=== PATIENT | male | born 1945 | race Caucasian/White ===

== ENCOUNTER 2021-11-09 18:41 | Emergency (ER) | payer OTHER, SELFPAY ==
[2021-11-09] VITALS (10 sets, daily range): BP systolic 176–236; BP diastolic 86–115; PULSE 76–88; RESP 9–24; TEMP 36.6; O2SAT 93–97
--- NOTE | 2021-11-09 19:14 | DI.CT.S_ITS ---
PROCEDURE: CT HEAD/BRAIN WO CON INDICATIONS: syncope with R orthodox laceration TECHNIQUE: Noncontrast 4.5 mm thick angled axial sections acquired from the foramen magnum to the vertex, with coronal and sagittal reformats. For radiation dose reduction, the following was used: automated exposure control, adjustment of mA and/or kV according to patient size. COMPARISON: None. FINDINGS: Image quality: Excellent. CSF spaces: Basal cisterns are patent. No extra-axial fluid collections. The ventricles are symmetric in size and shape. Brain: No intracranial bleeds or masses. There is cerebral volume loss for age, with resultant ventricular and sulcal prominence. There are periventricular and deep white matter chronic small vessel ischemic changes. There is intracranial internal carotid artery atherosclerosis. Skull and face: Calvarium and visualized facial bones appear intact, without suspicious lesions. Right frontal temporal subgaleal hematoma. Sinuses: Visualized sinuses and mastoids are clear. IMPRESSION: Right frontal temporal subgaleal hematoma. Negative for acute stroke, hemorrhage, or mass. No evidence of significant intracranial sequelae of acute trauma. Dictated by: Cornelio Rios M.D. on 11/09/2021 at 19:36 Approved by: Cornelio Rios M.D. on 11/09/2021 at 19:37
--- NOTE | 2021-11-09 19:14 | ED.GENADULT ---
HPI - General Adult General Chief complaint: Trauma Stated complaint: Blacked Out, Head Laceration Time Seen by Provider: 11/09/21 18:50 Source: patient Mode of arrival: Ambulatory Limitations: no limitations History of Present Illness HPI narrative: Patient is a 76-year-old male here for evaluation of a head injury and passing out. Patient states that he is unsure exactly what happened. The last thing that he remembers his walking up to the front entrance of the hospital in order to come to the emergency department to see a friend who was a patient. He states that the next thing that he remembers he is driving away from the hospital. Realizing that he was going the wrong direction and needed to turn around. He then noticed he was bleeding from his right forehead. He drove back to the hospital. He asked nursing staff at triage whether not he should be checked in. He thinks that he fell and hit his head but he is not 100% sure. At the time of my evaluation he does have a headache and a cut to his right forehead but otherwise he reports no other symptoms. Review of Systems Constitutional Constitutional: Denies fatigue, Denies fever(s), Denies frequent falls and Reports headache(s) Eyes Eyes: Denies change in vision ENT Ears, Nose, Mouth, and Throat: Reports headache(s) and Denies neck pain Cardiovascular Cardiovascular: Denies chest pain at rest, Reports syncope, Denies rapid heart rate and Denies dyspnea Respiratory Respiratory: Denies cough and Denies dyspnea Gastrointestinal Gastrointestinal: Denies abdominal pain Musculoskeletal Musculoskeletal: Denies back pain, Denies arthralgias and Denies neck pain Integumentary/Breasts Skin/Breast: Reports system reviewed and no additional complaints, except as documented and Reports as per HPI Neurologic Neurologic: Reports syncope, Denies frequent falls and Reports headache(s) Endocrine Endocrine: Denies fatigue Hematologic/Lymphatic On Anticoagulants: No Allergic/Immunologic Allergic/Immunologic: Reports system reviewed and no additional complaints, except as documented Patient History Social History lives independently: Yes Exam Initial Vital Signs Initial Vital Signs: Vital Signs Temperature 97.8 F 11/09/21 18:51 Pulse Rate 88 11/09/21 18:51 Respiratory Rate 20 11/09/21 18:51 Blood Pressure 230/110 H 11/09/21 18:51 Pulse Oximetry 97 11/09/21 18:51 Const General: cooperative, healthy appearing, comfortable, well developed, well groomed and No acute distress Limitations: mental status not altered HENWA Head: No contusion, hematoma and laceration Eyes Pupils: PERRL EOM: EOM intact bilaterally Resp Effort & Inspection: normal respiratory effort Auscultation: clear to auscultation bilaterally Cardio Rate: regular rate Rhythm: regular rhythm GI Inspection: normal to inspection Back/Spine/Pelvis Cervical Spine: No cervical spinal tenderness Skin Other: Patient with a stellate/Y type laceration superior lateral to his right eye. Is oozing blood. Neuro General: patient alert, patient awake, patient oriented x3 and moves all extremities Speech: speech normal Gait: normal gait Motor: muscle tone normal throughout Extrem General: normal to inspection and capillary refill normal Psych Appearance: grossly normal and well kempt Procedures Laceration Repair Laceration 1: Site: face Side (If applicable): right Size (cm): 4 Description: stellate and irregular Depth: simple, single layer Local Anesthetic: lidocaine 1% and with bicarb Amount of anesthesia used (mL): 6 Pre-repair: wound explored, irrigated extensively and deep structures intact Skin layer closed with: nylon Size (cm): 5-0 Number of sutures: 9 Technique: simple, interrupted Scores GCS Patricia coma scale eye opening: Spontaneous [place] coma scale verbal response: Orientated [place] coma scale motor response: Obey commands [place] coma scale total score: 15 Nexus Score for C-Spine Focal Neurologic deficit present: No Midline spinal tenderness present: No Altered level of conciousness present: No Intoxication present: No Distracting Injury Present: No Nexus Criteria for C-spine: 0 Course Orders Ordered: ED Orders 11/09/21 18:51 EKG-12 Lead Stat 11/09/21 19:14 CT head/brain wo con Stat 11/09/21 19:35 Basic Metabolic Panel Stat Complete Blood Count AUTO DIFF Stat ETOH [Ethanol (ETOH)] Stat Troponin & CK Cardiac Panel Stat Discontinued Medications Acetaminophen (Acetaminophen 325 Mg Tablet) 975 mg PO NOW ONE Stop: 11/09/21 19:52 Last Admin: 11/09/21 19:58 Dose: 975 mg Documented by: GURWINDER Bacitracin (Bacitracin Oint 0.9 Gm Pckt) 1 applic TOP NOW ONE Stop: 11/09/21 19:39 Last Admin: 11/09/21 19:58 Dose: 1 applic Documented by: GURWINDER Lidocaine/Sodium Bicarbonate (Lido 1%/Sod Bicarb 8.4% (10ml) 10 Ml Syringe) 10 ml INJ NOW ONE Stop: 11/09/21 19:39 Last Admin: 11/09/21 19:58 Dose: 10 ml Documented by: GURWINDER Vital Signs Vital signs: Vital Signs - 8 hr 11/09/21 19:06 11/09/21 19:30 11/09/21 19:32 Pulse Rate 81 82 81 Respiratory Rate 18 18 Blood Pressure 190/92 H Pulse Oximetry 94 93 96 11/09/21 19:54 11/09/21 19:55 11/09/21 20:00 Pulse Rate 79 79 83 Respiratory Rate 9 L 24 Blood Pressure 181/86 H 181/86 H Pulse Oximetry 93 93 94 11/09/21 20:01 11/09/21 20:30 Pulse Rate 80 76 Respiratory Rate 19 14 Blood Pressure 204/96 H 176/86 H Pulse Oximetry 95 95 Medical Decision Making Lab Data Lab results reviewed: Yes I reviewed the patient's lab results. Result diagrams: 11/09/21 19:35 11/09/21 19:35 Labs: Lab Results 11/09/21 11/09/21 11/09/21 Range/Units 19:35 19:35 19:35 WBC 10.9 (4.5-11.0) X10^3/uL RBC 5.13 (4.5-5.9) X10^6/uL Hgb 15.2 (13.5-17.5) g/dL Hct 44.3 (41-53) % MCV 86.2 (80-100) fL MCH 29.5 (26-34) PG MCHC 34.3 (30-36) % RDW 13.2 (11.6-14.8) % Plt Count 233 (150-400) X10^3/uL Neut % (Auto) 84.7 H (50-75) % Lymph % (Auto) 8.1 L (25-40) % [place] % (Auto) 5.5 (3-14) % Eos % (Auto) 1.2 L (2-4) % Baso % (Auto) 0.5 (0-2) % Neut # (Auto) 9200 H (2333-3232) /uL Lymph # (Auto) 900 L (8467-7894) /uL [place] # (Auto) 600 (0-900) /uL Eos # (Auto) 100 (0-450) /uL Baso # (Auto) 100 (0-100) /uL Sodium 137 (137-145) mmol/L Potassium 3.7 (3.4-5.1) mmol/L Chloride 101 (98-107) mmol/L Carbon Dioxide 32 (22-32) mmol/L BUN 19 (9-20) mg/dL Creatinine 0.75 (0.66-1.25) mg/dL Estimated GFR > 60.0 (>60) mL/min BUN/Creatinine Ratio 25.3 H (6-22) Glucose 113 H (80-110) mg/dL Calcium 9.2 (8.4-10.2) mg/dL Total Creatine Kinase 168 (55-170) U/L CK-MB (CK-2) 3.07 H (<2.37) ng/mL CK-MB (CK-2) Rel Index 1.8 (1.5-5.0) % Troponin I < 0.012 (0.01-0.034) ng/mL Ethyl Alcohol ( - 10) mg/dL 11/09/21 Range/Units 19:35 WBC (4.5-11.0) X10^3/uL RBC (4.5-5.9) X10^6/uL Hgb (13.5-17.5) g/dL Hct (41-53) % MCV (80-100) fL MCH (26-34) PG MCHC (30-36) % RDW (11.6-14.8) % Plt Count (150-400) X10^3/uL Neut % (Auto) (50-75) % Lymph % (Auto) (25-40) % [place] % (Auto) (3-14) % Eos % (Auto) (2-4) % Baso % (Auto) (0-2) % Neut # (Auto) (6635-5040) /uL Lymph # (Auto) (3516-8518) /uL [place] # (Auto) (0-900) /uL Eos # (Auto) (0-450) /uL Baso # (Auto) (0-100) /uL Sodium (137-145) mmol/L Potassium (3.4-5.1) mmol/L Chloride (98-107) mmol/L Carbon Dioxide (22-32) mmol/L BUN (9-20) mg/dL Creatinine (0.66-1.25) mg/dL Estimated GFR (>60) mL/min BUN/Creatinine Ratio (6-22) Glucose (80-110) mg/dL Calcium (8.4-10.2) mg/dL Total Creatine Kinase (55-170) U/L CK-MB (CK-2) (<2.37) ng/mL CK-MB (CK-2) Rel Index (1.5-5.0) % Troponin I (0.01-0.034) ng/mL Ethyl Alcohol < 10 ( - 10) mg/dL Imaging Data CT scan - head: Radiologist's Impression: Launch?[address] [address] [address] Scan Report Signed Patient: Cruz Smith MR#: [id number] : 1945 Acct:[id number] Age/Sex: 76 / M Date of Service: 11/09/21 Loc: ED Accession Number: [id number] ?? Procedure: CT head/brain wo con Ordering Provider: Harpal Schilling D.O. PROCEDURE:? CT HEAD/BRAIN WO CON ? INDICATIONS:? syncope with R confucianist laceration ? TECHNIQUE:? Noncontrast 4.5 mm thick angled axial sections acquired from the foramen magnum to the vertex, with coronal and sagittal reformats.? For radiation dose reduction, the following was used:? automated exposure control, adjustment of mA and/or kV according to patient size.? ? COMPARISON:? None. ? FINDINGS:? Image quality:? Excellent.? ? CSF spaces:? Basal cisterns are patent.? No extra-axial fluid collections.? The ventricles are symmetric in size and shape.? ? Brain:? No intracranial bleeds or masses.? There is cerebral volume loss for age, with resultant ventricular and sulcal prominence.? There are periventricular and deep white matter chronic small vessel ischemic changes.? There is intracranial internal carotid artery atherosclerosis.? ? Skull and face:? Calvarium and visualized facial bones appear intact, without suspicious lesions.? Right frontal temporal subgaleal hematoma. ? Sinuses:? Visualized sinuses and mastoids are clear.? ? IMPRESSION:? Right frontal temporal subgaleal hematoma. Negative for acute stroke, hemorrhage, or mass. No evidence of significant intracranial sequelae of acute trauma. ? ? ? Dictated by: Cornelio Rios M.D. on 11/09/2021 at 19:36 ? ? Approved by: Cornelio Rios M.D. on 11/09/2021 at 19:37? ECG Data Attestation: I personally reviewed and interpreted this ECG as follows: Interpretation: Sinus rhythm Ventricular rate 81 Normal axis Normal QRS Normal QTC No ST T wave changes MDM Narrative Medical decision making narrative: Patient is unsure exactly what happened but he feels like that he fell and hit his head. His presenting physical exam is consistent with that. States he does not necessarily remember falling but does not have any prodromal symptoms. Use alert oriented x3 and has a GCS of 15 and is clearly alert at the time of my exam. Head CT is unremarkable for any intracranial pathology. His EKG is unremarkable. Labs unremarkable. The cut to his right forehead this closed as described above. I suspect that the patient's slipped and hit his head and has amnesia from the event. His symptoms are consistent with concussion and I discussed this with him. Patient states that he feels back to normal. He was given care instructions and return precautions with regard to the injury. Reports no other injuries from the event. No further radiologic studies warranted. Cervical spine cleared by nexus criteria. He expressed understanding agreement plan. Discharge Plan Departure Patient Disposition: Home Clinical Impression: Syncope, Concussion, Laceration Instructions: DI for Concussion, DI for Laceration Repair Activity Restrictions/Additional Instructions: The stitches do need to be removed in 7-10 days. Until then you can cover them with an antibiotic ointment. Keep ice over the area. I would not be surprised if you develop a black eye over the next couple days. You can take Tylenol for any headaches. Return to the emergency department for any new or worsening symptoms.
[2021-11-09 19:44] LABS: Add Manual Diff / Slide Review NO; Basophils Absolute Auto 100 /uL (0-100); Basophils Percent Auto 0.5 % (0-2); Eosinophils Absolute Auto 100 /uL (0-450); Eosinophils Percent Auto 1.2 % (2-4); Hematocrit 44.3 % (41-53); Hemoglobin 15.2 g/dL (13.5-17.5); Lymphocytes Absolute Auto 900 /uL (1100-4500); Lymphocytes Percent Auto 8.1 % (25-40); Mean Corpuscular HGB Conc 34.3 % (30-36); Mean Corpuscular Hemoglobin 29.5 PG (26-34); Mean Corpuscular Volume 86.2 fL (80-100); Monocytes Absolute Auto 600 /uL (0-900); Monocytes Percent Auto 5.5 % (3-14); Neutrophils Absolute Auto 9200 /uL (1500-7000); Neutrophils Percent Auto 84.7 % (50-75); Platelet Count 233 X10^3/uL (150-400); Red Blood Cell Count 5.13 X10^6/uL (4.5-5.9); Red Cell Distribution Width 13.2 % (11.6-14.8); White Blood Cell Count 10.9 X10^3/uL (4.5-11.0)
[2021-11-09 19:55] LABS: BUN Creatinine Ratio 25.3 (6-22); Blood Urea Nitrogen 19 mg/dL (9-20); Calcium 9.2 mg/dL (8.4-10.2); Carbon Dioxide 32 mmol/L (22-32); Chloride 101 mmol/L (98-107); Creatine Kinase 168 U/L (55-170); Estimated Glomerular Filt Rate > 60.0 mL/min (>60); Glucose 113 mg/dL (80-110); HEMOLYSIS < 15 (0-50); Potassium 3.7 mmol/L (3.4-5.1); Sodium 137 mmol/L (137-145)
[2021-11-09 19:57] LABS: Ethanol (ETOH) < 10 mg/dL
[2021-11-09] MEDS: LIDO 1%/SOD BICARB 8.4% (10ML) 10 ML SYRINGE INJ (19:58)
[2021-11-09] MEDS: ACETAMINOPHEN 325 MG TABLET 975 MG PO (19:58)
[2021-11-09] MEDS: BACITRACIN OINT 0.9 GM PCKT 1 APPLIC TOP (19:58)
[2021-11-09 20:07] LABS: Troponin I < 0.012 ng/mL (0.01-0.034)
[2021-11-09 20:11] LABS: CKMB % Relative Index 1.8 % (1.5-5.0); Creatine Kinase MB 3.07 ng/mL (<2.37)
== END 2021-11-09 20:41 | disposition home or self-care (01) ==
PROVIDERS: Emergency Provider Emergency Medicine
DX: S06.0X9A Concussion with loss of consciousness of unspecified duration, initial encounter (principal); S01.81XA Laceration without foreign body of other part of head, initial encounter; R03.0 Elevated blood-pressure reading, without diagnosis of hypertension; W19.XXXA Unspecified fall, initial encounter
CPT/HCPCS: 12013; 36415; 70450; 80048; 80320; 82550; 82553; 84484; 85025; 93005; 93010; 99284; 99285

== ENCOUNTER 2021-11-17 10:44 | Emergency (ER) | payer OTHER, SELFPAY ==
[2021-11-17 12:15] VITALS: PULSE 90; RESP 18; TEMP 36.9; O2SAT 97
--- NOTE | 2021-11-17 12:42 | ED.RECABL ---
HPI - Recheck/Abnormal Lab/Rx <Richa Rg PA-C - Last Filed: 11/17/21 18:25> General Chief Complaint: Recheck/Abnormal Lab/Rx Stated Complaint: needs stitches out Time Seen by Provider: 11/17/21 12:35 Source: patient Mode of arrival: Ambulatory History of Present Illness HPI narrative: 76-year-old male presents to the ED for suture removal. Patient had 9 sutures put in to his right forehead on 11/09 2021. Patient states that he has been healing well, has not noticed any increased pain, redness, swelling, discharge. Related Data Allergies Allergy/AdvReac Type Severity Reaction Status Date / Time No Known Drug Allergies Allergy Verified 11/17/21 12:12 Review of Systems <Richa Rg PA-C - Last Filed: 11/17/21 18:25> Review of Systems ROS Unobtainable: All systems reviewed & are unremarkable except as noted in HPI and below Constitutional Constitutional: Denies chills, Denies fatigue, Denies fever(s), Denies frequent falls, Denies lethargy and Denies weakness Eyes Eyes: Denies change in vision, Denies eye discharge, Denies irritation and Denies loss of vision ENT Ears, Nose, Mouth, and Throat: Denies change in voice, Denies dizziness, Denies neck pain, Denies sore throat and Denies throat swelling Cardiovascular Cardiovascular: Denies chest pain, Denies irregular heart rhythm, Denies lightheadedness, Denies palpitations, Denies dyspnea, Denies dyspnea on exertion and Denies orthopnea Respiratory Respiratory: Denies cough, Denies dyspnea, Denies dyspnea on exertion and Denies wheezing Gastrointestinal Gastrointestinal: Denies abdominal pain, Denies change in bowel habits, Denies diarrhea, Denies nausea and Denies vomiting Genitourinary Genitourinary: Denies hematuria, Denies flank pain, Denies urinary incontinence and Denies urinary urgency Musculoskeletal Musculoskeletal: Denies back pain, Denies muscle weakness, Denies neck pain, Denies numbness and Denies tingling Integumentary/Breasts Skin/Breast: Denies pruritus, Denies erythema, Denies rash and Reports wounds Comments: Laceration to right forehead with sutures, healing well. Neurologic Neurologic: Denies behavioral changes, Denies confusion, Denies dizziness, Denies frequent falls, Denies loss of vision, Denies numbness, Denies tingling and Denies weakness Psychiatric Psychiatric: Denies anxiety, Denies behavioral changes, Denies confusion, Denies depression, Denies homicidal ideation and Denies suicidal ideation Endocrine Endocrine: Denies fatigue, Denies flushing and Denies palpitations Hematologic/Lymphatic Hematologic/Lymphatic: Denies easy bruising Allergic/Immunologic Allergic/Immunologic: Denies urticaria, Denies throat swelling and Denies wheezing Patient History <Richa Rg PA-C - Last Filed: 11/17/21 18:25> Social History lives independently: Yes Exam <Richa Rg PA-C - Last Filed: 11/17/21 18:25> Initial Vital Signs Initial Vital Signs: Vital Signs Temperature 98.5 F 11/17/21 12:15 Pulse Rate 90 11/17/21 12:15 Respiratory Rate 18 11/17/21 12:15 Pulse Oximetry 97 11/17/21 12:15 Const General: cooperative, healthy appearing and comfortable [facility] Head: other (Laceration with sutures in, healing well. No signs of infection) Eyes General: appearance normal, both eyes and all related structures Neck Neck: normal visual inspection Skin Trauma: laceration Other: Laceration to right forehead with 9 sutures. Laceration is healing well, skin well approximated. No signs of infection including erythema, swelling, discharge. Neuro General: patient alert, patient awake and patient oriented x3 <Angela Sidhu DO - Last Filed: 11/18/21 09:17> Initial Vital Signs Initial Vital Signs: Vital Signs Temperature 98.5 F 11/17/21 12:15 Pulse Rate 90 11/17/21 12:15 Respiratory Rate 18 11/17/21 12:15 Pulse Oximetry 97 11/17/21 12:15 Procedures <Richa Rg PA-C - Last Filed: 11/17/21 18:25> [facility] [place] Procedure Name of Procedure: Suture removal Side (if applicable): right Location: Right forehead Technique/Description of procedure performed: 9 Sutures removed Patient tolerated procedure: Well Complications: none Course <Richa Rg PA-C - Last Filed: 11/17/21 18:25> Vital Signs Vital signs: Vital Signs - 8 hr 11/17/21 12:15 Temperature 98.5 F Pulse Rate 90 Respiratory Rate 18 Pulse Oximetry 97 <Angela Sidhu DO - Last Filed: 11/18/21 09:17> Vital Signs Vital signs: Vital Signs - 8 hr 11/17/21 12:15 Temperature 98.5 F Pulse Rate 90 Respiratory Rate 18 Pulse Oximetry 97 MDM - Recheck/Abnormal Lab/Rx <Richa Rg PA-C - Last Filed: 11/17/21 18:25> [facility] Narrative Medical decision making narrative: 76-year-old male presents to the ED for suture removal. Laceration appears to have healed well, wound is well approximated. No signs of infection including erythema, swelling, discharge, pain. Removed sutures. Patient tolerated procedure well. Patient discharged home with ED return precautions, infection precautions. Discharge Plan Departure Patient Disposition: Home Clinical Impression: Visit for suture removal, Concussion Instructions: DI for Suture Removal Activity Restrictions/Additional Instructions: You were seen in the ED today for removal of sutures. Your laceration appears to be healing well with no signs of infection. Your sutures were removed today. Return to the ED if you notice any signs of infection including redness, swelling, pain, discharge. <Angela Sidhu DO - Last Filed: 11/18/21 09:17> Cosign ED Attending Cospaulature Attestation: I was immediately available in the department for consultation. Documentation has been reviewed.
--- NOTE | 2021-11-17 12:52 | PC.NURSE ---
Sutures removed by Arcenio HERRERA.
== END 2021-11-17 12:53 | disposition home or self-care (01) ==
PROVIDERS: Emergency Provider Student in an Organized Health Care Education/Training Program
DX: Z48.02 Encounter for removal of sutures (principal)
CPT/HCPCS: 99281